=== PATIENT | male | born 1995 | race African-American/Black ===

== ENCOUNTER 2018-06-15 13:28 | Emergency (ER) | payer MEDICAID ==
[~2018-06-15] VITALS: Ht 172.7 cm; Wt 84.0 kg
[2018-06-15 13:41] VITALS: BP 126/99
== END 2018-06-15 14:19 | disposition home or self-care (01) ==
LOC: ER 13:28
DX: L50.0 Allergic urticaria (principal); Z91.013 Allergy to seafood
CPT/HCPCS: 99283